=== PATIENT | male | born 1975 | race Caucasian/White ===

== ENCOUNTER → 2021-07-15 | Outpatient (CLI) | payer BC | LOC: RAD 16:36 | DX: Z00.00 Encounter for general adult medical examination without abnormal findings (principal); R07.81 Pleurodynia; M54.6 Pain in thoracic spine; M54.5 Low back pain; W19.XXXA Unspecified fall, initial encounter; L55.9 Sunburn, unspecified; S22.32XA Fracture of one rib, left side, initial encounter for closed fracture; S22.000A Wedge compression fracture of unspecified thoracic vertebra, initial encounter for closed fracture; S32.000A Wedge compression fracture of unspecified lumbar vertebra, initial encounter for closed fracture | CPT/HCPCS: 71100; 72072; 72100; 73030 ==